=== PATIENT | female | born 1960 | race African-American/Black ===

== ENCOUNTER 2018-09-09 18:21 | Emergency (ER) | payer OTHER ==
[~2018-09-09] VITALS: Ht 162.6 cm; Wt 99.8 kg
[2018-09-09 18:32] VITALS: BP 143/79
== END 2018-09-09 20:58 | disposition home or self-care (01) ==
LOC: ER 18:21
DX: M54.32 Sciatica, left side (principal); M79.605 Pain in left leg
CPT/HCPCS: 72100